=== PATIENT | female | born 1965 | race Caucasian/White ===

== ENCOUNTER 2017-08-25 08:27 | Day surgery (SDC) | payer OTHER ==
[2017-08-25] MEDS ORDERED: ACETAZOLAMIDE 250 MG PO ONE (08:46)
[2017-08-25] MEDS: PROPARACAINE HCL 0.5% OPHTHALMIC SOL ONE ×4 (08:55→10:00)
[2017-08-25] MEDS: PHENYLEPHRINE HCL 10% OPHTHAL SOL ONE ×3 (08:55→09:10)
[2017-08-25] MEDS: KETOROLAC 0.5% OPTH 60 DROP SOL ONE ×3 (08:56→09:10)
[2017-08-25] MEDS: CYCLOPENTOLATE 1% SOL ONE ×3 (08:57→09:10)
[2017-08-25 09:00] VITALS: O2SAT 97
[2017-08-25] MEDS ORDERED: MIDAZOLAM 2 MG/2 ML SOL ONE (09:36)
[2017-08-25] MEDS ORDERED: FENTANYL 100MCG/2ML SOL ONE (09:36)
[2017-08-25] MEDS ORDERED: LIDOCAINE HCL 1% MPF SOL ONE (09:53)
[2017-08-25] MEDS ORDERED: POVIDONE IODINE 5% SOL ONE (09:53)
[2017-08-25] MEDS ORDERED: BSS 500 ML 500 ML IR ONE (09:54)
[2017-08-25 10:34] VITALS: BP 129/86; PULSE 84; RESP 18; TEMP 97.4
== END 2017-08-25 10:55 | disposition home or self-care (01) | DRG 125 ==
LOC: SURG 08:27
PROVIDERS: ATTEND Ophthalmology
DX: H25.9 Unspecified age-related cataract (principal)
CPT/HCPCS: J2250; J3010; A9270-GY; J2001